=== PATIENT | female | born 1985 ===

== ENCOUNTER 2021-04-06 14:13 | Inpatient (IN) | payer OTHER ==
[~2021-04-06] VITALS: Ht 167.6 cm; Wt 74.8 kg
[2021-04-06 17:08] LABS: SARS-Cov-2 (COVID-19) PCR, MMC NEGATIVE (NEGATIVE)
[2021-04-06] MEDS ORDERED: FOLIVANE-OB CA1 EACH (17:19)
[2021-04-06] MEDS ORDERED: DHA100 MG (17:20)
[2021-04-06] MEDS ORDERED: PROBIOTIC1 EA13 (17:20)
[2021-04-06 19:32] LABS: BASOPHILS ABSOLUTE AUTO 0.04 K/mm3 (0.00-0.23); BASOPHILS PERCENT AUTO 0 % (0-2); EOSINOPHILS ABSOLUTE AUTO 0.05 K/mm3 (0.00-0.68); EOSINOPHILS PERCENT AUTO 1 % (0-6); Hematocrit 37.2 % (33.0-51.0); Hemoglobin 13.6 g/dL (11.5-16.0); IMMATURE GRAN ABSOLUTE AUTO 0.05 K/mm3 (0.00-0.10); IMMATURE GRAN PERCENT AUTO 1 % (0-1); LYMPHOCYTES ABSOLUTE AUTO 2.48 K/mm3 (0.84-5.20); LYMPHOCYTES PERCENT AUTO 26 % (21-46); MONOCYTES ABSOLUTE AUTO 0.57 K/mm3 (0.16-1.47); MONOCYTES PERCENT AUTO 6 % (4-13); Mean Corpuscular HGB 34.3 pg (26.0-34.0); Mean Corpuscular HGB Conc 36.6 g/dL (31.5-36.5); Mean Corpuscular Volume 94 fL (80-100); Mean Platelet Volume 12.3 fL (9.1-12.4); NEUTROPHILS ABSOLUTE AUTO 6.29 K/mm3 (1.96-9.15); NEUTROPHILS PERCENT AUTO 66 % (41-73); Platelet Count 169 K/mm3 (150-400); RDW Coefficient Variation 11.9 % (11.7-14.2); Red Blood Cell Count 3.96 M/mm3 (3.80-5.20); White Blood Cell Count 9.48 K/mm3 (4.00-11.30)
--- NOTE | 2021-04-06 20:59 | NUR ---
Nurse in with Patient.
--- NOTE | 2021-04-08 07:01 | NUR ---
PATIENT SITTING IN BED HOLDING BABY, BOTH ARE AWAKE.
--- NOTE | 2021-04-08 15:06 | NUR ---
60 MINUTES SPENT GOING OVER DISCHARGE INSTRUCTIONS WITH PATIENT. PATIENT VERBALIZED UNDERSTANDING AND ALL QUESTIONS ANSWERED. BANDS MATCHED WITH . BELONGINGS TAKEN TO PERSONAL CAR AND PT DISCHARGED AT 1245 WITH WRITTEN DISCHARGE INSTRUCTIONS AND ALL BELONGINGS.
== END 2021-04-08 12:55 | disposition home or self-care (01) | DRG 806 ==
LOC: BC 14:13 → OBS 14:13 → BC 15:46
PROVIDERS: ADMIT Advanced Practice Midwife
PROC: 10E0XZZ Delivery of Products of Conception, External Approach (ICD-10-PCS; principal; 2021-04-07)
PROC: 0KQM0ZZ Repair Perineum Muscle, Open Approach (ICD-10-PCS; 2021-04-07)
DX: O48.0 Post-term pregnancy (principal); O41.03X0 Oligohydramnios, third trimester, not applicable or unspecified; Z37.0 Single live birth; Z20.822 Contact with and (suspected) exposure to COVID-19; Z3A.49 Greater than 42 weeks gestation of pregnancy; O77.0 Labor and delivery complicated by meconium in amniotic fluid; O70.0 First degree perineal laceration during delivery; Z3A.41 41 weeks gestation of pregnancy; Z98.890 Other specified postprocedural states
CPT/HCPCS: 36415; 51702; 59025; 59200; 76815; 85025; 86850; 86900; 86901; 96360; 99213; A9270; J2001; J2590; J3010; J7120; U0004